=== PATIENT | female | born 1975 | race Hispanic/Latino ===

== ENCOUNTER 2019-04-21 10:49 | Emergency (ER) | payer OTHER ==
[~2019-04-21] VITALS: Ht 147.3 cm; Wt 54.4 kg
[2019-04-21] MEDS ORDERED: SODIUM CHLORIDE 0.9% 1000ML 1,000 ML IV STA (11:10)
[2019-04-21] MEDS ORDERED: FAMOTIDINE 20 MG/2 ML VIAL IV ONE ×2 (11:15→11:31)
[2019-04-21] MEDS ORDERED: ONDANSETRON HCL INJ 2MG/ML 2ML 2 MG/ML VIAL IV ONE (11:15)
[2019-04-21] MEDS ORDERED: KETOROLAC TROMETHAMINE 30 MG/ML VIAL IV ONE (11:15)
[2019-04-21] MEDS ORDERED: HYDROCODONE/APAP 5MG-325MG TAB PO ONE (11:15)
[2019-04-21] MEDS ORDERED: ONDANSETRON HCL INJ 2MG/ML 2ML 2 MG/ML VIAL ONE (11:30)
[2019-04-21] MEDS ORDERED: KETOROLAC TROMETHAMINE 30 MG/ML VIAL ONE (11:30)
[2019-04-21] MEDS ORDERED: HYDROCODONE/APAP 5MG-325MG TAB ONE (11:30)
[2019-04-21] MEDS ORDERED: SODIUM CHLORIDE 0.9% 1000ML 1,000 ML ONE (11:31)
--- NOTE | 2019-04-21 13:06 | Diagnostic Imaging Report ---
EXAM: CT Abdomen and Pelvis without contrast INDICATION: Low pelvic pain. COMPARISON: None. TECHNIQUE: Abdomen and pelvis were scanned utilizing a multidetector helical scanner from the lung base to the pubic symphysis without administration of IV contrast. Coronal and sagittal reformations were obtained. Routine protocol was performed. ORAL CONTRAST: Water COMPLICATIONS: None RADIATION DOSE: Total DLP: 359.7 mGy*cm Dose modulation, iterative reconstruction, and/or weight based adjustment of the mA/kV was utilized to reduce the radiation dose to as low as reasonably achievable. FINDINGS: LINES and TUBES: None. LOWER THORAX: Unremarkable HEPATOBILIARY: There is a 3.8 cm hypodense mass in the left hepatic lobe on series 2, image 14. There is an additional 1.9 cm hypodense lesion in the right hepatic lobe on image 29. No biliary ductal dilation. GALLBLADDER: No radio-opaque stones or sludge. No wall thickening. SPLEEN: No splenomegaly. PANCREAS: No focal masses or ductal dilatation. ADRENALS: No adrenal nodules KIDNEYS/URETERS: No evidence of hydronephrosis, solid mass, or stone. GI TRACT: No evidence of wall thickening or distension. Appendix is normal. PELVIC ORGANS/BLADDER: The bladder is decompressed. Multiple calcified phleboliths. LYMPH NODES: No lymphadenopathy. VESSELS: Unremarkable. PERITONEUM / RETROPERITONEUM: No free air or fluid. BONES AND SOFT TISSUES: Unremarkable. CONCLUSION: Indeterminant 3.8 cm hypodense mass in the left hepatic lobe and 1.9 cm hypodense lesion in the right hepatic lobe. In the setting of allergy to iodinated contrast, liver protocol MRI is recommended for further evaluation. Signed by: Dr. Jameel Hill MD on 04/21/2019 1:03 PM
[2019-04-21 13:28] VITALS: BP 142/90
== END 2019-04-21 13:23 | disposition home or self-care (01) ==
LOC: FSED 10:49
DX: N83.02 Follicular cyst of left ovary (principal); R10.32 Left lower quadrant pain; N83.292 Other ovarian cyst, left side; D25.9 Leiomyoma of uterus, unspecified
CPT/HCPCS: 74176; 80048; 80076; 81003; 81025; 85025; 99284; J1885; J2405; J7030

== ENCOUNTER 2021-05-20 19:19 | Emergency (ER) | payer OTHER ==
[~2021-05-20] VITALS: Ht 147.3 cm; Wt 61.2 kg
[2021-05-20] MEDS ORDERED: TYLENOL # 31 EA PO (20:55)
== END 2021-05-20 21:20 | disposition home or self-care (01) ==
LOC: FSED 19:35
DX: S06.0X0A Concussion without loss of consciousness, initial encounter (principal); M25.532 Pain in left wrist; S62.633A Displaced fracture of distal phalanx of left middle finger, initial encounter for closed fracture; S62.635A Displaced fracture of distal phalanx of left ring finger, initial encounter for closed fracture; V27.4XXA Motorcycle driver injured in collision with fixed or stationary object in traffic accident, initial encounter; Y92.488 Other paved roadways as the place of occurrence of the external cause
CPT/HCPCS: 70450; 74176; 99283